=== PATIENT | male | born 1990 | race Caucasian/White ===

== ENCOUNTER 2020-01-23 08:59 | Emergency (ER) | payer OTHER ==
[~2020-01-23] VITALS: Ht 167.6 cm; Wt 63.5 kg
[~2020-01-23 08:59] MED LIST: ACETAMINOPHEN-1 EAC1 PO; AMOXICILLIN500 M1 PO; BACTRIM DS TAB1 EACH PO; CEPHALEXIN 500500 M3 PO; HYDROCODONE-AP1 EAC6 PO; IBUPROFEN 600600 M1 PO; IBUPROFEN 800800 M1 PO; IBUPROFEN 800800 MG PO; KEFLEX500 MG PO; MAXITROL EYE DRO5 ML OP; MEDROLDOSEPACK PO; NORCO 5-325 TA1 EACH PO; NORFLEX100 MG PO
[2020-01-23 09:09] VITALS: BP 137/86
== END 2020-01-23 09:46 | disposition home or self-care (01) ==
LOC: M.ERS 08:59
DX: L25.5 Unspecified contact dermatitis due to plants, except food (principal)